=== PATIENT | male | born 2005 | race Caucasian/White ===

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

== ENCOUNTER 2024-12-24 09:54 | Outpatient (AMB) | payer OTHER, SELFPAY ==
--- NOTE | 2024-12-24 10:12 | A.OFFPC_ITS ---
Vital Signs 12/24/24 10:18 Height 6 ft 3 in Weight 192 lb 2 oz BMI 24.0 BP 118/82 Blood Pressure Location Rt brachial Position Sitting Pulse 71 Pulse Source Pulse Oximeter Temp 97.6 F Temp Source Temporal Artery Scan Pulse Oximetry (%) 98 Oxygen Delivery Method Room Air Intake Visit Reasons: ACTING INSTRUCTOR-PE Intake Note: Sammy presents in the office today to establish care. Allergies No Known Allergies Allergy (Verified 12/24/24 10:15) Medication List - Last Reconciled 12/24/24 by Misael Graves MD No Known Home Meds Tobacco use date assessed: 12/24/24 Dental Screening Dental Screen Date: 12/24/24 Did you have a dental visit in the last 12 months?: Yes Did you have a dental problem in the last 6 months where you did not have access to dental care?: No Was dental information given to patient?: Patient has dentist HPI ACTING INSTRUCTOR-PE HPI Details New Patient? ?? Prior PCP:? No recent PCP Last office visit/CPE:? since 16 Acute issue(s):? Est Care ?? PMHx:? None SurgHx:?None FHx:? Mom: Healthy. Dad: EtOH. Brother: Asthma SocHx: Nonsmoker. EtOH: 2-4 x a mo 5-6 drinks. No Drugs PFSH Medical History (Updated 12/24/24 @ 10:41 by Wilder Rubalcava) No known health problems Family History (Updated 12/24/24 @ 10:18 by Jessica Mcdonald MA) Father Substance abuse Alcoholism Maternal Grandfather Diabetes Brother Asthma Social History (Updated 12/24/24 @ 10:18 by Jessica Mcdonald MA) Housing: House Alcohol intake: current Patient Tobacco Use Status: Never used Tobacco e-Cigarette/Vaping Use: Never Used Second Hand Smoke Exposure: Yes Use of substances other than those prescribed or required for medical reasons: No service: Yes Current occupational status: employed Current occupation: [employer] Current occupational exposures/hazards: No Cognitive needs: No Hearing needs: No Vision needs: Yes Questionnaire PHQ-9 Over the last 2 weeks, how often have you been bothered by any of the following problems? 1. Little interest or pleasure in doing things: not at all 2. Feeling down, depressed, or hopeless: not at all 3. Trouble falling or staying asleep, or sleeping too much: not at all 4. Feeling tired or having little energy: not at all 5. Poor appetite or overeating: not at all 6. Feeling bad about yourself - or that you are a failure or have let yourself or your family down: not at all 7. Trouble concentrating on things, such as reading the newspaper or watching television: not at all 8. Moving or speaking so slowly that other people could have noticed. Or the opposite - being so fidgety or restless that you have been moving around a lot more than usual: not at all 9. Thoughts that you would be better off or of hurting yourself in some way: not at all Total score: 0 Depression Screening Interpretation: Negative Depression Screening Done: Yes 83782 - PHQ-9 Billing: Yes Source: Developed by Drs. Efren Dong, Yanna Solano, Candelario Rayo and colleagues, with an educational maggie from [employer]. Thrive Questionnaire Date Thrive assessed: 12/24/24 I am a: Patient What is your living situation today?: I have a steady place to live Within the past 12 months, did the food you bought not last and you didn't have the money to get more?: Never true Within the past 12 months, did you worry whether your food would run out before you got money to buy more?: Never true Do you have trouble paying for medicines?: No Do you have trouble getting transportation to medical appointments?: No Do you have trouble paying your heating and electricity bill?: No Do you have trouble taking care of your child, family member or friend?: No Do you have trouble with day-to-day activities such as bathing, preparing meals, shopping, managing finances, etc.?: No Are you currently unemployed and looking for a job?: No Are you interested in more education?: No Please select the resources that you would like help with: None Currently or been in a relationship where the following occur: No concerns reported THRIVE Score: 0 AUDIT C Alcohol Use Questionnaire (AUDIT-C) 1. How often do you have a drink containing alcohol?: 2-4 times a month 2. How many drinks containing alcohol do you have on a typical day when you are drinking?: 5 or 6 3. How often do you have six or more drinks on one occasion?: Less than monthly Total Score: 5 GRACE-7 AMB Questionnaire GRACE-7 Date GRACE - 7 assessed: 12/24/24 Feeling nervous, anxious, or on edge: 0 = Not at all Not being able to stop or control worryin = Not at all Worrying too much about different things: 0 = Not at all Trouble relaxin = Not at all Being so restless that it is hard to sit still: 0 = Not at all Becoming easily annoyed or irritable: 0 = Not at all Feeling afraid as if something awful might happen: 0 = Not at all Total GRACE-7 score (0-4 normal; 5-9 mild; 10-14 moderate; 15-21 severe): 0 Source: Developed by Drs. Efren Dong, Yanna Solano, Candelario Rayo and colleagues, with an educational maggie from [employer]. GRACE-7 Assessment Billing GRACE-7 Assessment Tool: GRACE-7 Assessment 20285 Review of Systems Const Denies chills, Denies fatigue, Denies fever(s), Denies headache(s) and Denies weakness Eyes Denies change in vision ENT Denies dizziness, Denies headache(s), Denies hearing loss, Denies nasal congestion, Denies sinus pain, Denies sinus pressure and Denies sore throat Card Denies chest pain, Denies lightheadedness, Denies dyspnea and Denies other (palpitations) Resp Denies cough, Denies dyspnea and Denies wheezing GI Denies abdominal pain, Denies melena, Denies hematochezia, Denies change in bowel habits, Denies dyspepsia and Denies nausea Denies hematuria and Denies dysuria Musc Denies abnormal gait, Denies myalgias, Denies arthralgias, Denies numbness and Denies tingling Skin/Breast Denies rash, Denies unusual bruising and Denies wounds Neuro Denies abnormal gait, Denies dizziness, Denies headache(s), Denies memory loss, Denies numbness, Denies Sensory deficit (Neuro), Denies tingling and Denies weakness Psych Denies anxiety, Denies depression and Denies memory loss Endo Denies cold intolerance, Denies fatigue, Denies heat intolerance, Denies polydipsia and Denies polyuria Dylan/Lymph Denies easy bleeding and Denies easy bruising Aller/Immun Denies wheezing Physical exam (Primary Care) Vital Signs: Last Vital Signs Temp 97.6 F 12/24/24 10:18 Pulse 71 12/24/24 10:18 BP 118/82 12/24/24 10:18 Pulse Ox 98 12/24/24 10:18 Oxygen Delivery Method Room Air 12/24/24 10:18 BMI result Body Mass Index 24.0 Tobacco/Smoking Status: Tobacco use Status Tobacco use date assessed 12/24/24 12/24/24 10:21 Patient Tobacco Use Status Never used Tobacco 12/24/24 10:21 e-Cigarette/Vaping Use Never Used 12/24/24 10:21 PHQ-9: PHQ-9 Score PHQ-9: Total score 0 12/24/24 10:35 Depression Screening Interpretation: Negative Thrive Assessment: Date of Thrive Assessment Date Thrive assessed 12/24/24 12/24/24 10:14 Currently or been in a relationship where the following occur: No concerns reported Const General: no acute distress, well developed, alert and awake Nutritional Appearance: well nourished Orientation/consciousness: patient oriented x3 HENMT Head: Yes normocephalic and Yes atraumatic Ears: hearing grossly normal bilaterally and TM's normal bilaterally General nose exam: Normal external nose present and Normal nares present Mouth: Normal oral and palatal mucosa present and moist mucous membranes Teeth and gingiva: dentition normal Throat: Yes posterior oropharynx normal Eyes General: appearance normal, both eyes and all related structures Pupils: Equal, round and reactive pupils present and Pupil accommodation reflex normal EOM: EOMs intact bilaterally Neck Neck: Yes normal visual inspection, Yes no lymphadenopathy and Yes trachea midline Thyroid: Thyroid normal Carotids: no bruits Lymphatic: no lymphadenopathy noted Chest Chest palpation & inspection: normal inspection of the chest Resp Effort & Inspection: normal respiratory effort Auscultation: clear to auscultation bilaterally Cardio Rate: regular rate Rhythm: regular rhythm Heart sounds: S1 normal heart sound present, S2 normal heart sound present, no gallops, no murmurs and no rubs Bruits: no abdominal aortic bruits and no carotid bruits GI Palpation (GI): No Abdominal aortic bruit present, Soft to palpation, nontender, No hepatosplenomegaly present and No Rebound tenderness present Auscultation: normal bowel sounds General: Yes no CVA tenderness Back/Spine/Pelvis Back: no CVA tenderness Cervical Spine: cervical ROM normal and No Cervical spine tenderness Thoracic/Lumbar Spine: thoraco-lumbar ROM normal, No pain with thoraco-lumbar ROM, No thoracic spinal tenderness and No lumbar spinal tenderness Skin Lesions: no lesions Rashes: no rashes Trauma: no lacerations or abrasions Wounds: no wounds Nails: normal Neuro General: patient oriented x3 Cranial nerves: Yes Equal, round and reactive pupils present Cognition (Neuro): normal cognition Gait exam (Neuro): Normal gait present Motor exam (neuro): 5/5 motor strength present throughout Sensory Exam: No Sensory deficit (Neuro) Deep tendon reflexes (DTR's): Right patellar reflex intensity grade: 2+ and Left patellar reflex intensity grade: 2+ Extrem General: Yes normal to inspection and No edema Psych Appearance: grossly normal Affect: normal affect Attitude: cooperative Thought process: Normal thought process present Coding Level of Care Code New Pt Level 4 (19471) Diagnoses Adult general medical exam Z00. Screening for STD (sexually transmitted disease) Z11.3 Additional Codes GRACE-7 Assessment Billing - GRACE-7 Assessment Tool: GRACE-7 Assessment 41944 ([id number]) PHQ-9 - 39651 - PHQ-9 Billing: Yes ([id number]) Assessment & Plan Assessment & Plan (1) Adult general medical exam: Code(s): Z. - Encounter for general adult medical examination without abnormal findings Category: Medical Plan: 19-year-old male presents as new patient for complete physical exam Exam all within normal limits Encouraged healthy diet with active lifestyle and plenty of exercise (2) Screening for STD (sexually transmitted disease): Code(s): Z11.3 - Encounter for screening for infections with a predominantly sexual mode of transmission Category: Medical Plan: Asymptomatic Check labs Orders: Orders TSH reflex Free T4 Today Z00.00 - Encounter for general adult medical examination without abnormal findings UA CC w/rflx Micro + Cult Today Z00.00 - Encounter for general adult medical examination without abnormal findings Hepatitis B,C Profile Today Z11.3 - Encounter for screening for infections with a predominantly sexual mode of transmission Comprehensive [place]. Panel Fast Today Z00.00 - Encounter for general adult medical examination without abnormal findings Lipid Panel Today Z00.00 - Encounter for general adult medical examination without abnormal findings Microalbumin, Random (w Creat) Today I10 - Essential (primary) hypertension Syphilis Screen Today Z11.3 - Encounter for screening for infections with a predominantly sexual mode of transmission HIV Ab/Ag Today Z11.3 - Encounter for screening for infections with a predominantly sexual mode of transmission CT NG by PCR Vag/Cerv Today Z11.3 - Encounter for screening for infections with a predominantly sexual mode of transmission
[2024-12-24 10:18] VITALS: BP 118/82; PULSE 71; TEMP 36.4; O2SAT 98; BMI 24.0
--- OUTSIDE RECORDS SUMMARY | 2024-12-24 10:31 | XMS_ITS | Continuity of Care Document ---
Author Name [facility] Organization [facility] Care Team Providers Care Engine Research Engineer Name Role Phone [facility] Unavailable Unavailable Immunizations Combined list of available immunizations from the Department of Defense and Veterans Affairs facilities. Immunization Series Date Given Administered By Site Reaction Lot Number CVX Code Drug Clinical Trial Specialist Status Comments Source hepatitis B vaccine, pediatric or pediatric/ado lescent dosage 2 2021 LEILA VANCE [id number] Howbuyine ([facility]) complet ed hepatitis B vaccine, pediatric or pediatric /adolesce nt dosage DoD varicella virus vaccine 2 2021 LEILA VANCE [id number] Merck (MSD) complet ed varicella virus vaccine DoD SARS-COV-2 (COVID-19) vaccine, mRNA, spike protein, LNP, preservative free, 30 mcg/0.3mL dose 2 2021 MELE MAYEN [id number] [employer] (PFR) complet ed SARS-COV- 2 (COVID-19 ) vaccine, mRNA, spike protein, LNP, preservat jacob free, 30 mcg/0.3mL dose DoD measles, mumps and rubella virus vaccine 1 2021 LONDON LIN [id number] Merck (MSD) complet ed measles, mumps and rubella virus vaccine DoD hepatitis B vaccine, pediatric or pediatric/ado lescent dosage 1 2021 [place] LIN [id number] SmithKline (SKB) complet ed hepatitis B vaccine, pediatric or pediatric /adolesce nt dosage DoD poliovirus vaccine, inactivated 1 2021 LONDON LIN [id number] SmithKline (SK) complet ed polioviru s vaccine, inactivat ed DoD varicella virus vaccine 1 2021 [place] LIN [id number] Merck (MSD) complet ed varicella virus vaccine DoD meningococcal polysaccharid e (groups A, C, Y and W-135) diphtheria toxoid conjugate vaccine (MCV4P) 1 2021 L[place] LIN [id number] Sanofi Pasteur (PMC) complet ed meningoco ccal polysacch aride (groups A, C, Y and W-135) diphtheri a toxoid conjugate vaccine (MCV4P) DoD tetanus toxoid, reduced diphtheria toxoid, and acellular pertu is vaccine, adsorbed 1 2021 LONDON LIN [id number] [employer] (SKB) complet ed tetanus toxoid, reduced diphtheri a toxoid, and acellular pertussis vaccine, adsorbed DoD Adenovirus, type 4 and type 7, live, oral 1 2021 [place] LINIA [id number] 143 [employer] (BRR) complet ed Adenoviru s, type 4 and type 7, live, oral DoD SARS-COV-2 (COVID-19) vaccine, mRNA, spike protein, LNP, preservative free, 30 mcg/0.3mL dose 1 2021 [place] LIN [id number] [employer] (PFR) complet ed SARS-COV- 2 (COVID-19 ) vaccine, mRNA, spike protein, LNP, preservat jacob free, 30 mcg/0.3mL dose DoD hepatitis A vaccine, unspecified formulation 0 2021 EDGARD HINKLE EXEMPT 85 Transcribed (TRS) Not Given hepatitis A vaccine, unspecifi ed formulati on DoD Vital Signs Combined list of inpatient and outpatient Vital Signs from Department of Defense and Veterans Affairs, ranging from 12 months to all on record, depending upon the facility. Vital Sign Value Date Comments Source Systolic Blood Pressure 134 mm[Hg] 10/04/2021 10:23:[address] [place] [address] Diastolic Blood Pressure 88 mm[Hg] 10/04/2021 10:23:[address] [place] [address] Peripheral Pulse Rate 66 bpm 10/04/2021 10:23:[address] [place] [address] Encounters Combined list of: 1) Encounters from Department of Veterans Affairs facilities going backup to the last 18 months, not all VA inpatient encounters are included; 2) Encounters from the Department of Defense facilities going backup to 280 months. Location Location Details Encounter Type Encounter Number Reason For Visit Attending Provider ADM Date DC Date Status Disposition Source [facility](IEP Optometry ) OUTPATIENT [id number] IET Inproce ssing BRYAN POSADA 12/02 Released w/o Limitations [facility](I EP Optomet ry) Procedures Combined list of: 1) Procedures from Department of Veterans Affairs facilities going back up to thelast 18 months, not all CT non-surgical procedures are included; 2) All procedures from the Department of Defense facilities. Procedure Procedure Type Code Date Perfomer Comments [facility] e Screening Test Of Visual Acuity, Quantitative, Bilateral Screening Test Of Visual Acuity, Quantitative, Bilateral [id number] BRYAN POSADA [facility] SCREENING TEST OF VISUAL ACUITY, QUANTITATIVE, BILATERAL 12/01/2021 [facility] EAR MOLD/INSERT, NOT DISPOSABLE, ANY TYPE 12/01/2021 [facility] No data available for this section Ambulatory Pharmacy Social History Combined list of available smoking, tobacco, and other social history from Department of Defense and Veterans Affairs facilities. Social History Type Response Date Comment Sour e This section is an empty soc ial history section. [facility] Sexual Orientation Ambula tory Pharmacy Gender identity Ambulator y Pharmacy Sex Representation Male (finding) Un known Organization Assessment and Plan Combined list of future care activities from Department of Defense and Veterans Affairs facilities (e.g., assessment and plan notes, appointments, orders, and referrals). Additional future care activities may be listed in the Plan of Care section. Result Assessment and Plan Date Source Assessment and Plan Extracted from:Title : Education Note Author: TIA JIMENEZ Date: 10/04/21 Patient Education Materials Follows: 12/24/[address] [place] [address] Functional Status Combined list of recent functional and cognitive assessments recorded at Department of Defense and [facility] Affairs ([place] Functional [place] Measurement (FIM) Scale: 1 = Total Assistance (Subject = 0% +), 2 = Maximal Assistance (Subject = 25% +), 3 = Moderate Assistance (Subject = 50% +), 4 = Minimal Assistance (Subject = 75% +), 5 = Supervision, 6 = Modified [place] (Device), 7 = Complete [place] (Timely, Safely). Assessment Date/Time Source Assessment Type Assessment Skill Assessment Score Assessment Details No data available for this section
--- OUTSIDE RECORDS SUMMARY | 2024-12-24 10:32 | XMS_ITS | Clinical Summary ---
Author Organization [facility] Address [address] [place] [phone] Phone Care Team Providers Care End User Support Specialist Name Role Phone Unavailable Primary Care Provider Unavailabl e Allergies No known active allergies Medications No known medications Active Problems Problem Noted Date Diagnosed Date Irritable bowel syndrome with constipation 06/23 Overview (06/23/2020): See by [facility] 05/2020 on Hycosamine, IBgard and miralax Immunizations Immunization Administration Dates Next Due DTaP 03/01/2007, 5,2003,07/08,2003 HPV Vaccine 9 Valent 04/05/2016,06/02/2015,04/03 Hep A, ped/adol 01/22/2019,01/16/2018 Hep B, ped/adol 2003,2003,2003 Hib (PRP-T) 10/06/2004, 4,2003,04/23 IPV 03/01/2007, 4,2003,04/23 Influenza, injectable, quadr ivalent, preservative free 04/13/2020,04/05/2016,02/10/2015 MMR 03/01/2007,02/16/2004 Meningococcal Conj (Menactra) MCV4P 04/13/2020,0 02/10/2015 Pneumococcal Conjugate 10/06/2004,2003,2003,04/23 Tdap 02/10/2015 Varicella 03/01/2007,02/16/2004 Family History Medical History Relation Name Comments Asthma Brother 1 Dave ADD / ADHD Brother 2 Tomi No Known Problems Father Diabetes Maternal Grandfather Leukemia Maternal Grandmother Hypothyroidism Mother Alcoholism Paternal Grandmother Relation Name Status Comments Brother 1 Daev Alive Brother 2 Tomi Alive 1 kidney Father Alive Maternal Grandfather Maternal Grandmother Mother Alive Paternal Grandfather Alive Paternal Grandmother Social History Tobacco Use Types Packs/Day Years Used Date Smoking Tobacco: Never Smokeless Tobacco: Never Hunger/Food Answer Date Recorded In the last 12 months, did y ou or your family ever eat less than you felt you should because there wasn't enough money for food? No 01/22/2019 Stable Housing Answer Date Recorded Are you worried that in the next 2 months you may not have stable housing? No 01/22/2019 Transportation Concerns Answer Date Rec orded In the last 12 months, have you or your family ever had to go without healthcare because you didn't have a way to get there? No 01/22/2019 Hazards in Home Answer Date Recorded Think about the place you li ve. Do you have problems with any of the following? Pests (mice or roaches), mold, no/not working smoke detectors, water leaks, no window guards. No 2018 Financing Utilities Answer Date Recorde d In the last 12 months, has t he electric, gas, oil, or water company threatened to shut off your services in your home? No 01/22/2019 Safety at Home Answer Date Recorded Are you or your family worried about feeling saf e in your home? No 01/22/2019 Outside Support Answer Date Recorded Do you feel that you need mo re support from other people or programs to help you care for yourself or your family? No 01/22/2019 Understanding Health Concerns Answer Da te Recorded Do you need help understandi ng your or your child's healthcare needs (diagnosis, medications, plan, etc.)? No 01/22/2019 Financing Health Concerns Answer Date R ecorded In the last 12 months, was t here a time when your child needed to see a doctor or get medications or supplies but could not because of cost? No 01/22/2019 Missing School or Work Answer Date Adin rded Did you or your child miss s chool or work because of a health problem that could have been avoided? No 01/22/2019 Sex and Gender Information Value Date Recorded Sex Assigned at Male 01/22/2019 1:10 PM EDT Legal Sex Male 6:21 PM EDT Gender Identity Male 01/22/2019 1:10 PM EDT Sexual Orientation Straight 01/22/2019 1: 10 PM EDT Last Filed Vital Signs Vital Sign Reading Time Taken Comments Blood Pressure 122/68 06/16/2020 11:07 AM EST Pulse - - Temperature 36.5 C (97.7 F) 06/16/2020 11:07 AM EST Respiratory Rate - - Oxygen Saturation - - Inhaled Oxygen Concentration - - Weight 78 kg (172 lb) 06/16/2020 11:07 AM EST Height 186.7 cm (6' 1.5 ) 05/20/2020 3:38 PM EST Body Mass Index - - Plan of Treatment Health Maintenance Due Date Last Done Comments Men B Vaccine (1 of 2 - Standard) 2019 COVID-19 Vaccine (2023-2 5 season) 2024 01/04/2022, 12/03/2021, 10/17/2020, Additional history exists Influenza Vaccines (#1) 2024 04/13/20 20, 04/05/2016, 02/10/2015 DTaP,Tdap,and Td Vaccines (8 - Td or Tdap) 12/04/2031 12/03/2021, 02/10/2015, 03/01/2007, Additional history exists HIB Vaccines Completed 10/06/2004, 07/27, 2003, Additional history exists Pneumococcal Vaccine Completed 10/06/2004, 01/05/2004, 2003, Additional history exists HPV Vaccines Completed 04/05/2016, 09/2015, 04/03/2015 Hepatitis A Vaccines Completed 01/22/2019, 01/17/20 18 IPV Vaccines Completed 12/03/2021, 08/2006, 02/16/2004, Additional history exists MMR Vaccines Completed 12/03/2021, 08/2006, 02/16/2004 Meningococcal Vaccine Completed 12/03/2021 , 04/13/2020, 02/10/2015 Hepatitis B Vaccines Completed 01/04/2022, 12/03/2021, 2003, Additional history exists Varicella Vaccines Completed 01/04/2022, 0 12/03/2021, 03/01/2007, Additional history exists Insurance [employer] EPO OPEN ACCESS
== END 2024-12-24 10:47 | disposition home or self-care (01) ==
LOC: HO.HMCFM 09:55
PROVIDERS: PCP Family Medicine; Visit Provider Family Medicine
DX: Z00.00 Encounter for general adult medical examination without abnormal findings (principal); Z11.3 Encounter for screening for infections with a predominantly sexual mode of transmission

== ENCOUNTER → 2024-12-24 09:54 | Outpatient (BNVA) | payer OTHER, SELFPAY | PROVIDERS: PCP Family Medicine; Visit Provider Family Medicine | DX: Z00.00 Encounter for general adult medical examination without abnormal findings (principal); Z13.31 Encounter for screening for depression; Z13.39 Encounter for screening examination for other mental health and behavioral disorders | CPT/HCPCS: 96127; 99385 ==

== ENCOUNTER 2025-01-22 12:44 | Outpatient (REF) | payer OTHER, SELFPAY ==
--- OUTSIDE RECORDS SUMMARY | 2025-01-22 13:01 | XMS_ITS | Continuity of Care Document ---
Author Name [facility] Organization [facility] Care Team Providers Care Water Chaser Name Role Phone [facility] Unavailable Unavailable Immunizations Combined list of available immunizations from the Department of Defense and Veterans Affairs facilities. Immunization Series Date Given Administered By Site Reaction Lot Number CVX Code Drug Unit Support Representative Status Comments Source hepatitis B vaccine, pediatric or pediatric/ado lescent dosage 2 2021 LEILA VANCE [id number] [employer] ([facility]) complet ed hepatitis B vaccine, pediatric or pediatric /adolesce nt dosage DoD varicella virus vaccine 2 2021 LEILA VANCE [id number] Merck (MSD) complet ed varicella virus vaccine DoD SARS-COV-2 (COVID-19) vaccine, mRNA, spike protein, LNP, preservative free, 30 mcg/0.3mL dose 2 2021 MELE MAYEN [id number] [employer] (PFR) complet ed SARS-COV- 2 (COVID-19 ) vaccine, mRNA, spike protein, LNP, preservat jacob free, 30 mcg/0.3mL dose DoD measles, mumps and rubella virus vaccine 1 2021 LONDON LIN [id number] Merck (MSD) complet ed measles, mumps and rubella virus vaccine DoD hepatitis B vaccine, pediatric or pediatric/ado lescent dosage 1 2021 [place] LIN [id number] SmithKline (SKB) complet ed hepatitis B vaccine, pediatric or pediatric /adolesce nt dosage DoD poliovirus vaccine, inactivated 1 2021 LONDON LIN [id number] SmithKline (SK) complet ed polioviru s vaccine, inactivat ed DoD varicella virus vaccine 1 2021 L[place]ON LIN [id number] Merck (MSD) complet ed varicella virus vaccine DoD meningococcal polysaccharid e (groups A, C, Y and W-135) diphtheria toxoid conjugate vaccine (MCV4P) 1 2021 LONDON LIN [id number] Sanofi Pasteur (PMC) complet ed meningoco ccal polysacch aride (groups A, C, Y and W-135) diphtheri a toxoid conjugate vaccine (MCV4P) DoD tetanus toxoid, reduced diphtheria toxoid, and acellular pertu is vaccine, adsorbed 1 2021 LONDON LIN [id number] [employer] (SKB) complet ed tetanus toxoid, reduced diphtheri a toxoid, and acellular pertussis vaccine, adsorbed DoD Adenovirus, type 4 and type 7, live, oral 1 2021 [place] LINIA [id number] [employer] (BRR) complet ed Adenoviru s, type 4 and type 7, live, oral DoD SARS-COV-2 (COVID-19) vaccine, mRNA, spike protein, LNP, preservative free, 30 mcg/0.3mL dose 1 2021 LONDON LIN [id number] Lycera (PFR) complet ed SARS-COV- 2 (COVID-19 ) [...] Systolic Blood Pressure 134 mm[Hg] 10/04/2021 10:23:[address] [place] [address] Diastolic Blood Pressure 88 mm[Hg] 10/04/2021 10:23:[address] [place] [address] Peripheral Pulse Rate 66 bpm 10/04/2021 10:23:[address] [place] [address] Encounters Combined list of: 1) Encounters from [...] Source [facility](IEP Optometry ) OUTPATIENT [id number] 2 IET Inproce ssing BRYAN POSADA 12/02 Released w/o Limitations [facility](I EP Optomet ry) Procedures Combined list of: 1) Procedures from Department of Veterans Affairs facilities going back up to thelast 18 months, not all [place] non-surgical procedures are included; 2) All procedures from the Department of Defense facilities. Procedure Procedure Type Code Date Perfomer Comments Sourc e No data available for this section Ambulatory Pharmacy SCREENING TEST OF VISUAL ACUITY, QUANTITATIVE, BILATERAL 12/01/2021 [facility] EAR MOLD/INSERT, NOT DISPOSABLE, ANY TYPE 12/01/2021 [facility] Screening Test Of Visual Acuity, Quantitative, Bilateral Screening Test Of Visual Acuity, Quantitative, Bilateral [id number] BRYAN POSADA [facility] Social History Combined list of available smoking, tobacco, and other social history from Department of Defense and Veterans Affairs facilities. Social History Type Response Date Comment Sourc e Sexual Orientation Ambula tory Pharmacy Gender identity Ambulator y Pharmacy Sex Representation Male (finding) Un known Organization This section is an empty soc ial history section. [facility] Assessment and Plan Combined list of future care activities from Department of Defense and Veterans Affairs facilities (e.g., assessment and plan notes, appointments, orders, and referrals). Additional future care activities may be listed in the Plan of Care section. Result Assessment and Plan Date Source Assessment and Plan Extracted from:Title : Education Note Author: TIA JIMENEZ Date: 10/04/21 Patient Education Materials Follows: 01/22/[address] [place] [address] Functional Status Combined list of recent functional and cognitive assessments recorded at [facility] and [facility] Functional [place] Measurement (FIM) Scale: 1 = Total Assistance (Subject = 0% +), 2 = Maximal Assistance (Subject = 25% +), 3 = Moderate Assistance (Subject = 50% +), 4 = Minimal Assistance (Subject = 75% +), 5 = Supervision, 6 = Modified [place] (Device), 7 = Complete [place] (Timely, Safely). Assessment Date/Time Source Assessment Type Assessment Skill Assessment Score Assessment Details No data available for this section
--- OUTSIDE RECORDS SUMMARY | 2025-01-22 13:09 | XMS_ITS | Encounter Summary ---
Author Organization [facility] Address [address] [place] [phone] Phone Care Team Providers Care Rate Setter Name Role Phone Efren Hayes MD Primary Care Provider [phone] Encounter Details Date Type Department Care Team (Late st Contact Info) Description 10/15/2017 Conversion Encounter [facility] [address] [place] [id number] Social History Tobacco Use Types Packs/Day Years Used Date Smoking Tobacco: Never Assessed Sex and Gender Information Value Date Recorded Sex Assigned at Male 01/22/2019 1:10 PM EDT Legal Sex Male 6:21 PM EDT Gender Identity Male 01/22/2019 1:10 PM EDT Sexual Orientation Straight 01/22/2019 1: 10 PM EDT documented as of this encounter Plan of Treatment Not on file documented as of this encounter Visit Diagnoses Not on filedocumented in this encounter Care Teams Rate Setter Relationship Specialty Start Date End Date Efren Hayes MD [address] [place] [address] PCP - General Pediatrics 01/15/18 02/22/24 documented as of this encounter
--- OUTSIDE RECORDS SUMMARY | 2025-01-22 13:09 | XMS_ITS | Clinical Summary ---
Author Organization [facility] Address [address] [place] [phone] Phone Care Team Providers Care Show Girl Name Role Phone Unavailable Primary Care Provider [...] Grandmother Relation Name Status Comments Brother 1 Dave Alive Brother 2 Tomi Alive 1 kidney [...]
[2025-01-22 14:35] LABS: Appearance Urine Turbid; Glucose Urine UA Negative (Negative); PH 6.0 (5.0-9.0); Specific Gravity - Urine >= 1.030 (1.005-1.025)
[2025-01-22 15:41] LABS: Microalbum/Creatinine Ratio Ur 13.3 ug/mg cr (<30)
[2025-01-22 18:44] LABS: Alanine Aminotransferase 38 U/L (0-40); Albumin Level 4.9 g/dL (3.5-5.0); Alkaline Phosphatase 86 U/L (39-117); Anion Gap 13 (12-20); Aspartate Amino Transferase 35 U/L (5-37); Blood Urea Nitrogen 14 mg/dL (9-16); Calcium 9.4 mg/dL (8.4-10.2); Carbon Dioxide 26 mmol/L (22-29); Chloride 104 mmol/L (96-108); Cholesterol 152 mg/dL (<200); Estimated Glomerular Filt Rate > 60; HDL Cholesterol 38 mg/dL (>40); Potassium 4.2 mmol/L (3.3-5.1); Sodium 139 mmol/L (135-145); Total Protein 7.3 g/dL (6.5-8.0); Triglycerides 59 mg/dL (<150)
[2025-01-23 03:44] LABS: Syphilis Screen Nonreactive (Nonreactive)
[2025-01-23 04:20] LABS: HBS Num1 > 1000.00 mIU/mL (0-7.99); HBc Num1 0.11 S/CO (0.00-0.79); HBsAGNum1 0.37 S/CO (0.00-0.99); HIV Num 1 0.11 S/CO (0.00-0.99); Hepatitis B Surface Antigen Negative (Negative); ~HepC Num1 0.13 S/CO (0.00-0.79); ~Hepatitis B Surface Antibody REACTIVE (Nonreactive); ~Hepatitis C Antibody Nonreactive (Nonreactive)
== END 2025-01-22 12:45 | disposition home or self-care (01) ==
LOC: HO.WFDLDS 12:44
PROVIDERS: Visit Provider Family Medicine
DX: Z00.00 Encounter for general adult medical examination without abnormal findings (principal); Z11.3 Encounter for screening for infections with a predominantly sexual mode of transmission; Z11.59 Encounter for screening for other viral diseases; Z11.4 Encounter for screening for human immunodeficiency virus [HIV]; I10 Essential (primary) hypertension
CPT/HCPCS: 36415; 80053; 80061; 81003; 82043; 82570; 84443; 86704; 86706; 86780; 86803; 87340; 87389